=== PATIENT | female | born 1995 | race Two or more races ===

== ENCOUNTER 2019-06-21 03:30 | Emergency (ER) | payer SELFPAY ==
[~2019-06-21] VITALS: Ht 162.6 cm; Wt 65.8 kg
[2019-06-21 03:44] LABS: *BILIRUBIN,URIN NEGATIVE (NEGATIVE); *CLARITY,URINE CLEAR (CLEAR); *COLOR,URINE YELLOW (YELLOW); *KETONES,URINE NEGATIVE (NEGATIVE); *UROBILINOGEN,URINE 0.2 E.U./dl (NORMAL); LEUKOCYTE ESTERASE ,URINE NEGATIVE (NEGATIVE); NITRITE, URINE NEGATIVE (NEGATIVE); UGLUCOSE NEGATIVE (NEGATIVE)
[2019-06-21 03:46] LABS: *BLOOD, URINE TRACE (NEGATIVE)
[2019-06-21 03:48] LABS: *URINE HCG, QUAL NEGATIVE (NEGATIVE)
[2019-06-21 03:50] LABS: BACTERIA,URINE NONE SEEN /HPF (NONE SEEN); RBC,URINE 0-3 /HPF (0-3); SQUAMOUS EPITHELIAL CELL,UR FEW /HPF (NONE SEEN); WBC,URINE 0-3 /HPF (0-3)
--- NOTE | 2019-06-21 03:58 | NUR ---
DR. CLARKE AT BEDSIDE FOR MSE.
--- NOTE | 2019-06-21 04:15 | NUR ---
Patient discharged to home in stable conditon. Written and verbal after care instructions given. Patient verbalizes understanding of instructions. PATIENT LEFT WITH STABLE GAIT.
[2019-06-21 04:17] VITALS: BP 110/70
[2019-06-23 00:06] LABS: NEISSERIA GONORRHOEAE NAA Negative (Negative)
== END 2019-06-21 04:17 | disposition home or self-care (01) ==
LOC: ER 03:34
DX: R35.0 Frequency of micturition (principal); M54.5 Low back pain; J45.909 Unspecified asthma, uncomplicated; Z88.1 Allergy status to other antibiotic agents
CPT/HCPCS: 84703; 87086; 87491; 87591